=== PATIENT | male | born 1990 | race African-American/Black ===

== ENCOUNTER 2018-03-08 15:36 | Emergency (ER) | payer OTHER ==
[~2018-03-08] VITALS: Ht 172.7 cm; Wt 90.7 kg
[~2018-03-08 15:36] MED LIST: NORCO 5-325 TA1 EACH PO
[2018-03-08 15:54] VITALS: BP 127/88
[2018-03-08] MEDS ORDERED: MEDROLDOSEPACK PO (16:08)
[2018-03-08] MEDS ORDERED: DOXYCYCLINE 10100 MG PO (16:08)
== END 2018-03-08 17:02 | disposition home or self-care (01) ==
LOC: ER 15:36
DX: L73.9 Follicular disorder, unspecified (principal)

== ENCOUNTER 2019-07-24 08:57 | Emergency (ER) | payer OTHER ==
[~2019-07-24] VITALS: Ht 170.2 cm; Wt 90.7 kg
[~2019-07-24 08:57] MED LIST changes: +DOXYCYCLINE 10100 MG PO; +MEDROLDOSEPACK PO
[2019-07-24 08:58] VITALS: BP 140/89
== END 2019-07-24 09:43 | disposition home or self-care (01) ==
LOC: ER 08:57
DX: Z53.21 Procedure and treatment not carried out due to patient leaving prior to being seen by health care provider (principal)